=== PATIENT | female | born 1975 ===

== ENCOUNTER 2022-02-15 09:30 | Emergency (ER) | payer SELFPAY ==
[2022-02-15 11:00] LABS: ANION GAP 7.3 meq/L (7-15); CHLORIDE,CL 104 mmol/L (98-107); ESTIMATED GFR 111 mL/min (>=60); SODIUM,NA 139 mmol/L (136-145)
== END 2022-02-15 14:10 | disposition home or self-care (01) ==
LOC: LL.ED 09:30
DX: K80.10 Calculus of gallbladder with chronic cholecystitis without obstruction (principal); K43.9 Ventral hernia without obstruction or gangrene; E66.9 Obesity, unspecified; Z68.30 Body mass index [BMI] 30.0-30.9, adult
CPT/HCPCS: 11602; 36415; 74022; 74176; 80053; 82150; 83605; 83690; 83735; 84484; 85025; 93005; 93010; 99284-25

== ENCOUNTER 2022-09-25 17:02 | Emergency (ER) | payer MEDICAID ==
[2022-09-25 17:31] LABS: CHLORIDE,CL 100 mmol/L (98-107); SODIUM,NA 138 mmol/L (136-145)
[2022-09-25 17:32] LABS: ESTIMATED GFR 80 mL/min (>=60)
[2022-09-25] MEDS ORDERED: Ketorolac 30 MG/ML SDV IVPUSH ONE (17:43)
[2022-09-25] MEDS ORDERED: Morphine 4 MG/ML Syringe IM ONE (18:00)
[2022-09-25] MEDS ORDERED: Ondansetron 4 MG/2 ML SDV IVPUSH ONE (18:00)
[2022-09-25 18:56] VITALS: BP 125/78; PULSE 110
[2022-09-25 20:41] LABS: BARBITURATE SCREEN,URINE NEGATIVE (NEGATIVE); BENZODIAZEPINES SCREEN,URINE NEGATIVE (NEGATIVE); EDDP,URINE SCREEN NEGATIVE (NEGATIVE); TCA SCREEN,URINE NEGATIVE (NEGATIVE); THC SCREEN,URINE 50 NG/ML POSITIVE (NEGATIVE)
[2022-09-25 20:47] LABS: BUPRENORPHINE SCREEN,URINE NEGATIVE (NEGATIVE)
== END 2022-09-25 19:20 | disposition home or self-care (01) ==
LOC: LL.ED 17:02
DX: S00.03XA Contusion of scalp, initial encounter (principal); M54.50 Low back pain, unspecified; E66.9 Obesity, unspecified; Z68.39 Body mass index [BMI] 39.0-39.9, adult; Z87.891 Personal history of nicotine dependence; Y04.0XXA Assault by unarmed brawl or fight, initial encounter
CPT/HCPCS: 36415; 72040; 72100; 74018; 80048; 80305-QW; 81001; 85025; 96372; 96374; 96375; 99284; 99284-25; J1885; J2270; J2405

== ENCOUNTER 2023-03-27 18:09 | Emergency (ER) | payer MEDICAID ==
[2023-03-27] MEDS ORDERED: traMADol 50 MG Tab PO ONE (18:11)
[2023-03-27] MEDS ORDERED: Ketorolac 10 MG Tab PO ONE (18:12)
[2023-03-27 18:30] LABS: BASOPHILS ABSOLUTE AUTO 0.01 K/uL (0.00-0.20); BASOPHILS PERCENT AUTO 0.1 % (0.0-2.0); EOSINOPHILS ABSOLUTE AUTO 0.09 K/uL (0.00-0.50); HEMATOCRIT 38.1 % (34.0-46.0); HEMOGLOBIN 12.3 g/dL (11.7-15.5); LYMPHOCYTES ABSOLUTE AUTO 3.67 K/uL (0.50-3.50); LYMPHOCYTES PERCENT AUTO 40.4 % (10.0-50.0); MEAN CORPUSCULAR HEMOGLOBIN 31.7 pg (28.2-33.3); MEAN CORPUSCULAR HGB CONC 32.3 g/dL (31.7-36.0); MEAN CORPUSCULAR VOLUME 98.2 fL (84.0-98.0); MONOCYTES ABSOLUTE AUTO 0.66 K/uL (0.00-1.00); MONOCYTES PERCENT AUTO 7.3 % (2.0-14.0); NEUTROPHILS ABSOLUTE AUTO 4.65 K/uL (1.40-7.00); NEUTROPHILS PERCENT AUTO 51.2 % (45.0-80.0); PLATELET COUNT,PLT 299 K/uL (150-350); RED BLOOD CELL COUNT 3.88 M/uL (3.77-5.09); RED CELL DISTRIBUTION WIDTH 13.6 % (11.2-14.1); WHITE BLOOD CELL COUNT,WBC 9.1 K/uL (4.0-10.2)
[2023-03-27 18:51] LABS: ALANINE AMINOTRANSFERASE,ALT 16 U/L (12-78); ALBUMIN 3.3 g/dL (3.4-5.0); ALKALINE PHOSPHATASE 104 IU/L (46-116); ASPARTATE AMNIOTRANSFERASE,AST 13 U/L (15-37); BILIRUBIN TOTAL 0.2 mg/dL (0.2-1.0); BLOOD UREA NITROGEN,BUN 14 mg/dL (7-18); CALCIUM 8.4 mg/dL (8.5-10.1); CARBON DIOXIDE,CO2 28.1 mmol/L (21.0-32.0); CHLORIDE,CL 105 mmol/L (98-107); CREATININE 0.69 mg/dL (0.51-1.17); GLUCOSE RANDOM 93 mg/dL (70-99); POTASSIUM,K 3.4 mmol/L (3.5-5.1); PROTEIN TOTAL,TP 7.4 g/dL (6.4-8.2); SODIUM,NA 141 mmol/L (136-145)
[2023-03-27 18:52] LABS: ANION GAP 11.3 meq/L (7-15); ESTIMATED GFR 109 mL/min (>=60)
[2023-03-27] MEDS ORDERED: cefTRIAXone 1 GM Vial IM ONE (19:20)
[2023-03-27] MEDS ORDERED: Take Home: Doxycycline 100 MG Cap, 4 Cap Pack PO ONE (19:23)
[2023-03-27] MEDS ORDERED: Take Home: traMADol 50 MG, 4 Tab Pack PO ONE (19:24)
[2023-03-27] MEDS ORDERED: Lidocaine 1% 5 ML VIAL ONE (19:30)
== END 2023-03-27 19:50 | disposition home or self-care (01) ==
LOC: LL.ED 18:09
DX: N61.1 Abscess of the breast and nipple (principal)
CPT/HCPCS: 36415; 80053; 85025; 96372; 99283; A9270-GY; J0696; J3490

== ENCOUNTER 2023-09-19 09:00 | Emergency (ER) | payer MEDICAID ==
[2023-09-19] MEDS: Ondansetron 4 MG Tab.DIS PO ONE (09:24)
[2023-09-19] MEDS ORDERED: Naloxone 0.4 MG/ML SDV IVPUSH PRN (09:31)
[2023-09-19] MEDS: fentaNYL 50 MCG/ML SDV IVPUSH ONE (09:41)
[2023-09-19 09:42] LABS: BASOPHILS ABSOLUTE AUTO 0.02 K/uL (0.00-0.20); BASOPHILS PERCENT AUTO 0.2 % (0.0-2.0); EOSINOPHILS ABSOLUTE AUTO 0.05 K/uL (0.00-0.50); EOSINOPHILS PERCENT AUTO 0.4 % (0.0-5.0); HEMATOCRIT 43.7 % (34.0-46.0); HEMOGLOBIN 14.2 g/dL (11.7-15.5); LYMPHOCYTES ABSOLUTE AUTO 0.86 K/uL (0.50-3.50); LYMPHOCYTES PERCENT AUTO 7.1 % (10.0-50.0); MEAN CORPUSCULAR HGB CONC 32.5 g/dL (31.7-36.0); MEAN CORPUSCULAR VOLUME 95.4 fL (84.0-98.0); MONOCYTES ABSOLUTE AUTO 0.45 K/uL (0.00-1.00); MONOCYTES PERCENT AUTO 3.7 % (2.0-14.0); NEUTROPHILS PERCENT AUTO 88.6 % (45.0-80.0); PLATELET COUNT,PLT 359 K/uL (150-350); RED BLOOD CELL COUNT 4.58 M/uL (3.77-5.09); RED CELL DISTRIBUTION WIDTH 13.5 % (11.2-14.1); WHITE BLOOD CELL COUNT,WBC 12.1 K/uL (4.0-10.2)
[2023-09-19] MEDS: Sodium Chloride 0.9% 10 ML Syringe FLUSH PRN (09:42)
[2023-09-19 09:56] LABS: PROTHROMBIN TIME 9.6 SEC (9.0-11.1)
[2023-09-19 10:05] LABS: ALANINE AMINOTRANSFERASE,ALT 39 U/L (12-78); ALBUMIN 3.8 g/dL (3.4-5.0); ALKALINE PHOSPHATASE 130 IU/L (46-116); ANION GAP 9.1 meq/L (7-15); ASPARTATE AMNIOTRANSFERASE,AST 28 U/L (15-37); BILIRUBIN TOTAL 0.6 mg/dL (0.2-1.0); BLOOD UREA NITROGEN,BUN 13 mg/dL (7-18); CALCIUM 9.2 mg/dL (8.5-10.1); CARBON DIOXIDE,CO2 22.9 mmol/L (21.0-32.0); CHLORIDE,CL 104 mmol/L (98-107); CREATININE 0.76 mg/dL (0.51-1.17); GLUCOSE RANDOM 120 mg/dL (70-99); POTASSIUM,K 4.3 mmol/L (3.5-5.1); SODIUM,NA 136 mmol/L (136-145)
[2023-09-19 10:12] LABS: ESTIMATED GFR 98 mL/min (>=60)
== END 2023-09-19 12:00 | disposition home or self-care (01) ==
LOC: LL.ED 09:00
DX: A08.4 Viral intestinal infection, unspecified (principal); E66.9 Obesity, unspecified; Z90.710 Acquired absence of both cervix and uterus
CPT/HCPCS: 36415; 74176; 80053; 85025; 85610; 96374; 99284; 99284-25; A9270-GY; J3010; J3490